=== PATIENT | female | born 1945 | race Caucasian/White ===

== ENCOUNTER → 2021-12-17 11:19 | Outpatient (CLI) | payer MEDICARE, SELFPAY ==
[2021-12-17 11:57] LABS: COVID19 -Nasal RAPID Negative (Negative)
== END ==
PROVIDERS: Referring Provider Podiatrist; Visit Provider Podiatrist
DX: Z20.822 Contact with and (suspected) exposure to COVID-19 (principal)
CPT/HCPCS: 87635; C9803

== ENCOUNTER 2021-12-18 08:08 | Day surgery (SDC) | payer MEDICARE, SELFPAY ==
[2021-12-17 15:21] VITALS: BMI 27.2
[2021-12-18] VITALS (8 sets, daily range): BP systolic 160–196; BP diastolic 79–106; PULSE 58–78; RESP 12–28; TEMP 36.1–36.4; O2SAT 97–100; BMI 27.2
--- NOTE | 2021-12-18 | PATH_ITS ---
[facility] Accession Number: [id number] No. of containers..01 Tissue . 01 Material submitted: . foot - RIGHT FOOT . 01 Clinical history: . GANGLION CYST . 01 Diagnosis: Right Foot, Excision: Consistent with ganglion cyst. [facility] 12/24/2021 0855 Local . 01 Electronically signed: . Jose Rafael Juan MD, Dermatopathologist NPI- [id number] . 01 Gross description: . RIGHT FOOT: Received in formalin is 1 fragment(s) of elliott, soft tissue measuring 1.7 x 1.2 x 0.8 cm which are inked serially sectioned and submitted entirely in 1 cassette(s) /[facility] 12/22/2021 2257 Local . 01 Pathologist provided ICD-10: M67.471 . 01 CPT . 188375 Specimen Comment: A courtesy copy of this report has been sent to [phone] Performed at: 01 [facility] [address] [place] [address], [place], [place] [id number] MD Hever Ayers MD Phone: [phone]
--- NOTE | 2021-12-18 07:40 | PM.HP.1 ---
History of Present Illness History of Present Illness Chief complaint: [facility] [place] Patient History Medical History (Updated 12/17/21 @ 15:27 by Lorraine Oconnell RN) Arthritis Asthma DJD (degenerative joint disease) Fibromyalgia Gout Headache, migraine HLD (hyperlipidemia) HTN (hypertension) IBS (irritable bowel syndrome) Osteoporosis Scoliosis Skin cancer Spinal stenosis Thyroid disease Surgical History (Updated 12/17/21 @ 15:28 by Lorraine Oconnell RN) History of hysterectomy Hx of appendectomy Hx of section Family & Social History Tobacco & Substance use: Smoking Status Former smoker Meds Home Medications and Allergies Home Medications Medication Instructions Recorded Confirmed Type celecoxib 100 mg capsule (Celebrex) 100 mg PO BID 12/17/21 12/17/21 History ezetimibe 10 mg tablet (Zetia) 10 mg PO DAILY 12/17/21 12/17/21 History hydrocodone 10 mg-acetaminophen 1 tab PO Q4-6H PRN Pain 12/17/21 12/17/21 History 325 mg tablet levothyroxine 12/17/21 History losartan 12/17/21 History pregabalin 100 mg capsule 100 mg PO TID 12/17/21 12/17/21 History Allergies Allergy/AdvReac Type Severity Reaction Status Date / Time codeine Allergy Verified 12/17/21 15:25 ibuprofen Allergy Verified 12/17/21 15:25 Assessment & Plan Time Spent With Patient Critical Care time: I spent a total of [] minutes of critical care time on this patient's care today; this time is exclusive of procedural time.
[2021-12-18] MEDS: LACTATED RINGERS 1,000 ML 84 ML IV (08:56)
--- NOTE | 2021-12-18 09:35 | SUR.PHASEII ---
Spoke iwth Dr Simpson. Ibuprofen for pain now, see new order. No flomax needed. Ibuprofen and Acetaminophen at home for pain.
--- NOTE | 2021-12-18 09:53 | PM.PREOP ---
Pre-operative Note COVID-19 COVID-19 status: Negative Result date/Date tested (Pos, Neg/Pending): 12/17/21 Interval Note History & Physical reviewed/Exam performed by Physician: Yes Changes to H&P: No
--- NOTE | 2021-12-18 09:54 | P.OP_ITS ---
Operative Date/Time/Diagnoses Date of procedure: 12/18/21 Time of procedure: 09:54 Pre-op diagnosis: Right foot soft tissue mass, suspect ganglion cyst Post-op diagnosis: same Procedure & Clinicians Procedure: Right foot ganglion cyst excision Same procedure as scheduled: Yes Indications: 76-year-old female with ongoing concern of painful mass to the top of the right foot. There is a suspicion of ganglion cyst. Conservative measures have failed to alleviate this pain and she wished to have surgical intervention at this time. We spoke the risks, potential complications, expected outcomes. Consent was signed, no contraindication to the procedure at this time. Surgeon: Kerline Peraza Click Yes if Unassisted: Yes Anesthesia Type: General Operative Notes Closure Type: primary Specimen(s): other (Soft tissue suspected to be ganglion cyst sent for verification to pathology from right fourth/fifth tarsometatarsal joint region.) Estimated Blood Loss (mL): 20 Blood products transfused: none Tourniquet time (min): 26 Procedure in detail: The patient was brought to the operating room and placed on the operating table in the supine position. Tourniquet was placed about the right thigh. Well padded, appropriately aligned. After induction of general anesthesia the foot and ankle were prepped and draped in the usual aseptic manner. The tourniquet was inflated. After check of anesthesia, an incision was made over the dorsal lateral midfoot over the soft tissue mass enlargement. The incision was deepened through subcutaneous tissues, being careful to identify and retract all vital neural and vascular structures. All bleeders were cauterized and ligated as ne cessary. The enlargement of the underlying mass was immediately shown, filled with viscous fluid and the marcano somewhat translucent consistent with suspected ganglion cyst. It was overlying what appeared to be a peroneus tertius which had a small tear. One wall of the cyst was the tendon sheath of the tertius. The cyst measured about 2.75 x 1.5 cm. After it was cleanly resected at its base from the tendon sheath, it also had an extension component into the juncture of the cuboid/fourth-fifth metatarsal bases. This was also removed from that area and use of a currette to insure best potential for non recurrence from the joint. The area was irrigated with copious amounts of normal sterile saline. The specimen was passed from the table and sent to pathology for identification. Cautery was used where it was coming from at the joint mentioned above to attempt less potential for recurrence. No further gelatinous fluid was seen. The tertius tendon was resected on one edge that had the most injury from the cyst, and the majority of the tendon in good strength and health was covered with the overlying remaining retinacular tissue and remaining tendon sheath. Two areas of the tendon edge were repaired used 4-0 vicryl. The tourniquet was deflated, a prompt hyperemic response was seen to the foot. Subcutaneous closure performed using 4-0 vicryl and skin closure performed using 3-0 nylon. The area was dressed with a lightly compressive sterile dressing including Adaptic, 4x4s, kerlix, and LAURO wrap. She was placed in stockinette and post op shoe and transferred to the PACU with vital signs stable and vascular status intact. Complications: none Post-operative Condition: stable Disposition: PACU Plan for aftercare: Following a period of postoperative monitoring, the patient will be discharged to home on written and oral postoperative instructions including keeping the dressing dry and intact, avoiding significant ambulation on the foot, icing and elevating the foot when seated home. DVT prevention techniques have been reviewed. For the 1st postoperative visit the dressing will be changed and close to the 3rd postoperative week we will likely remove the sutures.
[2021-12-18] MEDS: CEFAZOLIN 2 GM/100 ML PREMIX 100 ML IV (09:58)
--- NOTE | 2021-12-18 10:21 | SUR.OPER ---
Supine on padded OR bed, head on pillow, arms secured on padded arm boards at <90 degrees abduction, legs uncrossed, safety belt at abdomen, tape over blanket over lower left leg. [place] bump under right hip
[2021-12-18] MEDS: BUPIVACAINE 0.5% (PF) VIAL 30 ML INJ (10:27)
== END 2021-12-18 12:30 | disposition home or self-care (01) ==
PROVIDERS: PCP Family Medicine; Referring Provider Podiatrist; Visit Provider Podiatrist
PROC: (CPT 28090; principal; 2021-12-18 09:15)
DX: M67.471 Ganglion, right ankle and foot (principal); I10 Essential (primary) hypertension; E03.9 Hypothyroidism, unspecified; M79.7 Fibromyalgia
CPT/HCPCS: 28090; J0690; J3010

== ENCOUNTER 2022-12-02 11:18 | Day surgery (SDC) | payer MEDICARE, SELFPAY ==
[2022-11-24 10:05] VITALS: BMI 25.7
[2022-12-02] VITALS (11 sets, daily range): BP systolic 117–176; BP diastolic 48–80; PULSE 54–963; RESP 6–29; TEMP 36.2–37; O2SAT 94–100; BMI 24.8; BMI 25.7
--- NOTE | 2022-12-02 | DI.RAD.S_ITS ---
PROCEDURE: XR HIP W PEL IF DONE RT 2V INDICATIONS: POST OP TECHNIQUE: AP pelvis and lateral view of the right hip acquired. COMPARISON: [facility], [place], XR HIP W PEL IF DONE RT 2V, 12/02/2022, 17:12. FINDINGS: Bones: Patient is status post right hip arthroplasty, with hardware components in expected positions. The hip joint appears congruent. The visualized bony structures appear intact. Soft tissues: Overlying postoperative changes are noted. No suspicious soft tissue densities. IMPRESSION: Expected postoperative appearance of the right total hip arthroplasty. Dictated by: Stephan Henry M.D. on 12/02/2022 at 19:08 Approved by: Stephan Henry M.D. on 12/02/2022 at 19:08
--- NOTE | 2022-12-02 06:00 | DI.RAD.S_ITS ---
PROCEDURE: XR HIP W PEL IF DONE RT 2V INDICATIONS: SHANNAN TECHNIQUE: Fluoroscopic guidance utilized for a right total hip arthroplasty. COMPARISON: None. FINDINGS: Fluoroscopic guidance for a right total hip arthroplasty, which appears well aligned. IMPRESSION: Fluoroscopic guidance. Dictated by: Stephan Henry M.D. on 12/02/2022 at 18:48 Approved by: Stephan Henry M.D. on 12/02/2022 at 18:48
[2022-12-02] MEDS: ACETAMINOPHEN 325 MG TABLET 975 MG PO (13:27)
[2022-12-02] MEDS: LACTATED RINGERS 1,000 ML 42 ML IV ×3 (13:28→18:12)
--- NOTE | 2022-12-02 16:09 | PM.PREOP ---
Pre-operative Note Interval Note History & Physical reviewed/Exam performed by Physician: Yes Changes to H&P: No
[2022-12-02] MEDS: CEFAZOLIN 2 GM/100 ML PREMIX 100 ML IV ×2 (16:22→22:57)
[2022-12-02] MEDS: TRANEXAMIC ACID 1,000 MG VIAL 1000 MG INJ (16:22)
--- NOTE | 2022-12-02 16:53 | SUR.OPER ---
Supine on padded [place] table with bilateral legs secured in padded positioning boots and suspended in positioning spars, operative leg in traction per surgeon. Head on one pillow. Arms on both sides secured on padded armboards. Padded perineal post in place per surgeon.
[2022-12-02] MEDS: ROPIVACAINE/EPI/CLONIDINE/KET 50 ML SYRINGE INJ (16:57)
[2022-12-02] MEDS: HYDROMORPHONE 1 MG INJ IV ×3 (18:45→19:10)
[2022-12-02] MEDS: hydrOXYzine 50 MG/ML INJ 25 MG IM (18:46)
[2022-12-02] MEDS: ACETAMINOPHEN IV 1,000 MG/100 ML VIAL 400 MG IV (18:58)
--- NOTE | 2022-12-02 19:03 | PM.OP.1 ---
Operative Date/Time/Diagnoses Date of procedure: 12/02/22 Time of procedure: 16:45 Pre-op diagnosis: Right hip arthritis Post-op diagnosis: same Procedure & Clinicians Procedure: Right total hip arthroplasty Same procedure as scheduled: Yes Surgeon: Sonny Dallas [employer] Assistant Teacher: Suleman Clemente Anesthesia Type: General and Local Operative Notes Specimen(s): none sent Prosthetic devices, grafts, tissues, transplants, or devices: Depuy [place] 52 mm acetabular cup with 2 screws with a 5 standard offset Actis femoral stem and 36 mm +1.5 femoral head Procedure in detail: This 77-year-old female patient had severe activity limitations secondary to right hip arthritis. She was seen in the clinic and operative versus nonoperative treatment was discussed with her at length. She wished to proceed with right total hip arthroplasty. Risks and benefits of the procedure were discussed in detail. Given her age of 77 years and her female gender, I considered cementing her stem. She had had a recent DEXA scan which demonstrated a T-score of 0.1 in the right hip. I therefore felt her bone density was sufficient to utilize uncemented fixation for her femoral stem. Informed consent was obtained. She had been taking oral opioids prior to surgery and was counseled to abstain from those as much as possible in order to optimize her postoperative pain control. She was met in the preoperative holding area the day of surgery and the procedure was again discussed at length. All questions were answered. She was brought back to the operating room where general anesthesia was induced as she stated she had spinal degeneration which would preclude placement of spinal anesthesia. She was anesthetized and transferred to the [place] table. All bony prominences were padded. She was prepped and draped in the usual sterile fashion. Operative staff included Suleman Clemente, physician operations administrative assistant. His assistance was required for patient positioning, soft tissue retraction, wound closure. Without his assistance the procedure would not have been possible. A time-out procedure was performed verifying the correct patient operative site procedure allergies and comorbidities. All were in agreement. TXA and cefazolin were both administered prior to incision. A direct anterior approach the hip was utilized. The rectus and TFL were dissected and the lateral circumflex vessels between them were coagulated. An anterior wall retractor was placed and the reflected head of rectus was released under tension. Cobra retractors were placed over the superior and inferior femoral neck. A capsulotomy was made in line with the femoral neck. This was retracted using tag stitches. An [place] soft tissue retractor was placed between the TFL and the rectus and the Cobra retractors were replaced intracapsularly. The medial leaflet was dissected down to the lesser trochanter and a resection was marked using a ruler cut to the templated neck cut. The a napkin ring was cut as well. This was removed and the femoral head was removed. Retractors were placed on the anterior and posterior wall of the acetabulum and the labrum was sharply excised. The pulvinar was coagulated and excised. A single 51 mm Reamer was utilized. Fluoroscopic verification was used to ensure appropriate reaming depth. This involved positioning the C-arm to obtain an AP pelvis which matched her preoperative standing AP pelvis. Once satisfied with the ream, a 52 mm pinnacle cup was placed. Positioning was verified fluoroscopically. The ellipse did appear to be a significant amount of anteversion, perhaps 30?, however this was barely tucked underneath the anterior wall and did not appear to be excessive based on palpable landmarks. Two screws were placed and appropriate positioning was verified fluoroscopically. A 36 mm liner was placed and tested to ensure appropriate stability by attempting to wedge it out with a tonsil. When this could not be done I was satisfied that the liner was in an appropriate locked position. All retractors were removed and the lateral capsule was released off of the femur. This involved placing a Hohmann retractor outside the capsule and dissecting the capsule away from the conjoined tendon. This lateral leaflet was then tucked medially and the femur was extended and adducted without any traction on. Medial and greater trochanter retractors were placed and the femur was elevated. It was then elevated. Once appropriate broaching position had been obtained I used a starter broach to obtain access to the femoral diaphysis. I used a curved rasp to open up the canal. I then broached up to a size 5. A standard offset neck and a +1.5 mm head were placed. Retractors were removed and the hip was manually reduced. An AP pelvis was again obtained and a line across the ischium was used to measure leg length. I felt that the hip was slightly long based on that fluoroscopic image. I was satisfied with the offset. The hip was then dislocated and the neck and head were removed. The hip was returned to the broaching position and retractors were replaced. The size 5 broach had a good fit on the AP hip x-ray but given the slight excess length, I broached the size 5 broach further down the femur and calcar planed again. I then placed a size 5 standard offset stem. The stem did not sit as far down as the broach had. I placed a trial +1.5 mm head. All retractors were removed and the hip reduced. The hip was noted to be stable with maximum external rotation as well as a 45 degree drop test. An AP pelvis was again obtained and demonstrated that the operative hip was very slightly longer than the nonoperative hip. Offset was appropriate. I brought the hip back down into the broaching position and replaced retractors and once more attempted to impact the stem down to the level at which I had broached. The stem did not advance with light taps and I felt that the risk of fracture outweighed the slight lengthening of the hip and at that time placed a +1.5 mm ceramic head. This was impacted onto a clean dry trunnion. The retractors were removed the hip was reduced and stability testing was again performed, demonstrating stability with maximum external rotation as well as a 45 degree drop test. Final fluoroscopic images were obtained. The wound was soaked with Betadine and then irrigated. Additional tranexamic acid was administered. The soft tissues were infiltrated with a mixture ropivacaine epinephrine clonidine and Toradol. The wound was closed with Vicryl and the capsule, Stratafix, and Monocryl. Dermabond was applied and an Aquacel dressing was applied. The patient was awoken from anesthesia and taken to the PACU where she was noted to have intact dorsiflexion and plantar flexion of her hallux and ankle, a palpable PT pulse in her operative foot, and grossly appropriate leg lengths. Post-operative Plan for aftercare: Weightbearing as tolerated Aspirin DVT prophylaxis twice per day 81 mg Plan for discharge home Discharge once physical therapy has cleared her. This will necessitate an overnight stay given the time of her transfer to the floor Follow-up outpatient in our clinic for a wound check Continue previous outpatient regimen of 10 mg hydrocodone through the 1st week postoperatively. Any additional opioids beyond that time would need to be prescribed by her pain management doctor
[2022-12-02] MEDS: ONDANSETRON 4 MG/2 ML INJ IV (19:05)
[2022-12-02] MEDS: LORazepam 2 MG/ML INJ 0.5 MG IV ×2 (19:05→19:24)
[2022-12-02] MEDS: OXYCODONE IR 5 MG TABLET PO (19:11)
[2022-12-02] MEDS: DOCUSATE 100 MG CAPSULE PO (22:17)
[2022-12-02] MEDS: ASPIRIN EC 81 MG TABLET PO (22:17)
[2022-12-02] MEDS: LACTATED RINGERS 1,000 ML 100 ML IV (22:17)
[2022-12-02] MEDS: PREGABALIN 50 MG CAPSULE 100 MG PO (22:17)
[2022-12-02] MEDS: ACETAMINOPHEN 325 MG TABLET 650 MG PO (22:18)
[2022-12-02] MEDS: methocarbamoL 500 MG TABLET 750 MG PO (22:19)
--- NOTE | 2022-12-03 00:07 | PC.ADMIT ---
[address] Admission Note: Patient arrived to ACU from PACU at 19:55. Alert and confused, somewhat drowsy. Significant other present at bedside. LR running at 100/hr. Patient oriented to room and call light. Bed in low and locked position, bed alarm on and call light within reach. The patient,Arnoldo Orona,77 y/o, was given written information regarding hospital policies, unit procedures and contact persons. Patient's smoking status: Former smoker. Vital Signs - 8 hr 12/02/22 18:32 12/02/22 18:36 12/02/22 18:52 Temperature 97.2 F L Pulse Rate 59 L 85 100 H Respiratory Rate 6 L 14 29 H Blood Pressure 137/48 L 145/63 H 158/75 H Pulse Oximetry 95 95 99 Oxygen Delivery Method Room Air Room Air Room Air Oxygen Flow Rate 12/02/22 18:57 12/02/22 19:02 12/02/22 19:18 Temperature Pulse Rate 963 H 80 54 L Respiratory Rate 21 23 20 Blood Pressure 176/80 H 117/78 160/71 H Pulse Oximetry 97 98 96 Oxygen Delivery Method Room Air Room Air Room Air Oxygen Flow Rate 12/02/22 19:23 12/02/22 19:55 12/02/22 20:25 Temperature 98.6 F 98.3 F Pulse Rate 56 L 54 L 58 L Respiratory Rate 15 18 18 Blood Pressure 135/67 146/62 H 142/78 H Pulse Oximetry 96 94 97 Oxygen Delivery Method Room Air Oxygen Flow Rate 2 2 12/02/22 21:55 Temperature 98.6 F Pulse Rate 55 L Respiratory Rate 18 Blood Pressure 154/62 H Pulse Oximetry 100 Oxygen Delivery Method Oxygen Flow Rate 2
[2022-12-03] MEDS: OXYCODONE IR 10 MG TABLET PO ×5 (01:33→15:34)
[2022-12-03 01:46] VITALS: BP 169/71; PULSE 83; RESP 18; TEMP 36.6; O2SAT 99
[2022-12-03] MEDS: LACTATED RINGERS 1,000 ML 100 ML IV (03:18)
[2022-12-03] MEDS: CEFAZOLIN 2 GM/100 ML PREMIX 100 ML IV (05:20)
[2022-12-03] MEDS: ACETAMINOPHEN 325 MG TABLET 650 MG PO ×2 (06:57→12:39)
--- NOTE | 2022-12-03 07:32 | PM.PNPO.1 ---
Subjective Subjective Date Patient Seen: 12/03/22 Time Patient Seen: 07:32 Interval history: Pain is moderate. Denies fever or chills. No nausea or vomiting. Patient does have a caregiver at home. Exam Vital Signs (past 8 hours): - 12/03/22 01:46 Temperature 97.9 F Pulse Rate 83 Respiratory Rate 18 Blood Pressure 169/71 H Pulse Oximetry 99 Oxygen Flow Rate 2 Oxygen Delivery Method Room Air Oxygen Flow Rate 2 Narrative Exam Narrative: 77-year-old female resting comfortably in bed in no apparent distress. Dressing is clean, dry and intact. Motor functions intact bilateral lower extremities. Sensation grossly intact to light touch bilateral lower extremities. Const General: cooperative and comfortable Nutritional Appearance: average body habitus Resp Effort & Inspection: normal respiratory effort and able to speak in complete sentences Objective Labs 12/03/22 06:53 PFSH Medical History History of COVID-19 (2019) Thyroid disease Spinal stenosis Osteoporosis Scoliosis IBS (irritable bowel syndrome) Headache, migraine Fibromyalgia Gout DJD (degenerative joint disease) HTN (hypertension) HLD (hyperlipidemia) Skin cancer Asthma Arthritis Surgical History Hx of foot surgery (12/18/21) Hx of section History of hysterectomy Hx of appendectomy Social History household members: significant other Smoking Status: Former smoker alcohol intake: never Assessment & Plan Post-op Postoperative Procedures: Procedures Operation Date: 12/02/22 12:45 Actual Procedure Side Surgeon p Total Hip Arthroplasty/Anterior Approach Right Sonny Dallas MD Postoperative day: 1 Postoperative status: doing well Postoperative status narrative: Status post right total hip arthroplasty, anterior approach Postoperative plan: routine post-op care Postoperative plan narrative: Mobilize with physical therapy, anterior hip precautions Multimodal pain management Aspirin for DVT prophylaxis Discharge likely later today or tomorrow
[2022-12-03 07:47] LABS: Hematocrit 25.5 % (36-46); Hemoglobin 8.8 g/dL (12.0-16.0)
[2022-12-03] MEDS: DOCUSATE 100 MG CAPSULE PO (08:17)
[2022-12-03] MEDS: methocarbamoL 500 MG TABLET 750 MG PO (08:17)
[2022-12-03 08:18] VITALS: BP 150/57; PULSE 71; RESP 18; TEMP 36.3; O2SAT 94
[2022-12-03] MEDS: LOSARTAN 50 MG TABLET 100 MG PO (08:18)
[2022-12-03] MEDS: PREGABALIN 50 MG CAPSULE 100 MG PO (08:18)
[2022-12-03] MEDS: ASPIRIN EC 81 MG TABLET PO (08:18)
[2022-12-03] MEDS: LEVOTHYROXINE 50 MCG TABLET PO (08:18)
[2022-12-03] MEDS: EZETIMIBE 10 MG TABLET PO (08:18)
--- NOTE | 2022-12-03 09:30 | PT.IIE ---
Current Diagnoses Unilateral primary osteoarthritis, right hip (12/02/22) Surgery Performed Operation Date: 12/02/22 12:45 Actual Procedures p Total Hip Arthroplasty/Anterior Approach(Right) - Sonny Dallas MD Surgical History (Last Reviewed 12/03/22 @ 07:33 by Suleman Clemente PA-C) History of hysterectomy Hx of appendectomy Hx of section Hx of foot surgery (12/18/21) Medical History (Last Reviewed 12/03/22 @ 07:33 by Suleman Clemente PA-C) Arthritis Asthma DJD (degenerative joint disease) Fibromyalgia Gout Headache, migraine History of COVID-19 (2019) HLD (hyperlipidemia) HTN (hypertension) IBS (irritable bowel syndrome) Osteoporosis Scoliosis Skin cancer Spinal stenosis Thyroid disease Physical Therapy Inpatient Evaluation/Re-Eval M1 PT/OT-IP Prior Functional Status Start: 12/03/22 12:15 Freq: NEEDED Status: Active Protocol: Document 12/03/22 09:30 AB (Rec: 12/03/22 12:28 AB [email or web address]) Medical Review Prior Functional Status Medical History Reviewed Yes Communication able to make needs known Mobility and Gait pt stated that she is modified independent with all mobilities and ambulation without AD but occasionally using either a FWW or a SPC in the last month due to hip pain Social History Household Members other Living Arrangements House Number of Floors (Floors) Two Floors Number of Stairs To Enter/Railing? pt will stay on the main level of the house 3 steps without rails to enter Home Environment High Toilet,Walk in Shower Home Equipment Front Wheel Walker,Straight Cane,Shower Seat without Backrest,Hand Held Shower,Grab Bars In Shower Additional Social History Comment pt stated that her account support specialist Danielle will be assisting her at home M2 PT-IP Current Condition Start: 12/03/22 12:15 Freq: NEEDED Status: Active Protocol: Document 12/03/22 09:30 AB (Rec: 12/03/22 12:28 AB [email or web address]) Physical Therapy Current Condition Current Condition Evaluation Date 12/03/22 Treatment Diagnosis s/p R SHANNAN anterior approach; difficutly in walking Onset Date 12/02/22 M3 PT-IP Subjective Start: 12/03/22 12:15 Freq: NEEDED Status: Active Protocol: Document 12/03/22 09:30 AB (Rec: 10/13/23 12:28 [id number]) Subjective Physical Therapy Visit Type Type Initial Evaluation Visit Start Time 09:30 Visit Stop Time 10:50 Total Visit Minutes 58 Notes seen for split visits: 930 to 948 am and 1010 to 1050am Number of ASSOCIATE MANAGER Visits 0 Physical Therapy Visit Comments Patient Comments pt agreeable to do PT Therapy Pain Assessment Pain When Pain Assessed At Rest Pain Present Pain Present Pain Reported Location hip Intensity 6 Scale Used increases with mobility Pain Behaviors Facial Grimacing,Guarding, Holding Area,Wincing Pain Management Techniques Apply Cold,Distraction, Modification of Treatment,Re- positioning,Timing of Activity with Medications M4 PT-IP Mobility and Gait Start: 12/03/22 12:15 Freq: NEEDED Status: Active Protocol: Document 12/03/22 09:30 (Rec: 12/03/22 12:28 [email or web address]) PT-Bed Mobility Assessment Supine to Sit Supine to Sit Maximum Assistance PT-Transfer Assessment Sit to and From Stand Sit to and from Stand Maximum Assistance,1 Person Assistance,Use of Upper Extremities Equipment Transfer Assistive Device Gait Belt,Front Wheeled Walker Orthotic/Prosthetic Devices or Brace: No Transfers Transfer Destination Chair Transfer Technique ambulated Transfer Ability Level of Assist Maximum Assistance,1 Person Assistance,Use of Upper Extremities Comments Mobility Comments educated pt regarding anterior hip precautions. pt only able to recall 1/2. BP in supine 123/51. completed supine to sit max A and max cues. able to sit on EOB CGA. completed sit to stand max A and max cues. c/o increase R hip pain. ambulated in room using FWW max A ~ 20 ft. max cues for steadiness and precautions. pt presents with heavy UE use on FWW for support during ambulation. pt sat on the chair. positioned pt on the chair. call light and table placed within reach. set up caregiver traininpm this afternoon. informed pt regarding mobility assistance needs and not safe to go and will re-assess this afternoon and also will conduct caregiver training. informed nurse. Gait Assessment Gait Gait Assistance Required: Maximum Assistance Distance (Feet) 20 Able to Maintain Weight Bearing Status Yes During Gait Assistive Devices Assistive Device Gait Belt,Front Wheeled Walker Orthotic/Prosthetic Devices or Brace: No Gait Deviations General Gait Pattern Antalgic,Decreased Stride Length,Decreased Feet Clearance Factors Limiting Gait Function Factors Limiting Gait Function Decreased Activity Tolerance, Decreased Sensation,Decreased Strength,Difficulty Following Directions,Limited Range of Motion,Pain,Poor Balance,Poor Safety Awareness PT-Balance Assessment Sitting Balance and Reactions Static Sitting Balance Ability Good Dynamic Sitting Balance Ability Good Standing Balance and Reactions Static Standing Balance Ability Poor Dynamic Standing Balance Ability Poor Device Used FWW M5 PT-IP Objective Assessments Start: 12/03/22 12:15 Freq: NEEDED Status: Active Protocol: Document 12/03/22 09:30 AB (Rec: 12/03/22 12:28 AB [email or web address]) Orientation Orientation/Cognition Level of Alertness Alert Orientation Name,Place Language Function Ability No Deficits Noted Safety Awareness Decreased Safety Awareness Memory Description Short Term Impaired Gross Range of Motion Lower Extremity ROM Assessment Within Functional Limits Strength Lower Extremity Strength Assessment Right Impaired Hip 3-/5 Knee 3+/5 Coordination Assessment Gross Coordination Gross Coordination WNL Sensation Assessment Sensation Sensation Description Numbness Comments Sensation Comments c/o slight lateral R thigh numbness Muscle Tone Muscle Tone WNL Yes M6 PT-IP Treatment Start: 12/03/22 12:15 Freq: NEEDED Status: Active Protocol: Document 12/03/22 09:30 AB (Rec: 12/03/22 12:28 AB [email or web address]) Physical Therapy Treatment Education Education Provided Precautions,Weight Bearing Status,Post-Op Packet,Safety M7 PT-IP Assessment and Plan Start: 12/03/22 12:15 Freq: NEEDED Status: Active Protocol: Document 12/03/22 09:30 AB (Rec: 12/03/22 12:28 [email or web address]) PT Summary Assessment and Plan Potential Rehabilitation Potential Fair Status of Condition at Evaluation Evolving Summary Impairments Pain,ROM,Strength,Balance, Coordination,Sensation,Tone, Cognition,Bed Mobility, Transfers,Gait,Activity Tolerance Assessment Summary pt is a 77 y/o female s/p R SHANNAN anterior approach POD1. pt requiring max A with mobility and max cues for safety and precautions. caregiver training set up this afternoon and will re-assess d/c plans. pt has 3 steps without rails to enter the house and as of this morning, needing max A with ambulation with heavy UE use on FWW for support and is not appropriate to do stair climbing. will attempt this afternoon if appropriate. will continuet o assess progress. d/c plan: SNF vs 13/09 assist and HHPT. Goals Bed Mobility Goal Minimal Assistance Transfer Goal Minimal Assistance,Front Wheeled Walker Gait Goal Minimal Assistance,Front Wheel Walker Gait Distance 100 Other Goals improve bed mobiltiy, transfers and ambulation using FWW ~ 200 ft SBA up/down 3 steps using SPC/SET UP WORKER CGA Days to Meet Goals 10 Frequency of Treatment Frequency Of Treatment Twice a Day Treatment Plan Physical Therapy Treatment Plan Bed Mobility Training,Transfer Training,Gait Training, Therapeutic Exercise,Balance Retraining,Post Op Education, Discharge Planning,Hot or Cold Pack,Neuromuscular Re-ed, Coordination Retraining,Manual Therapy Precautions Anterior Hip Precautions No Hip Extension,No Hip External Rotation Weight Bearing Status Weight Bearing Status Weight Bear as Tolerated Allowed Weight Bearing Amount (enter % RLE WBAT or #) (%) Recommendations To Nursing Amount of Assist Needed 1 Person Assist Discharge Recommendations PT Discharge Recommendations Home with 13/09 Assist Available,Home Health,SNF Rehab,Home vs SNF Transportation Needs at Discharge Private Vehicle,Wheelchair/ Cabulance
--- NOTE | 2022-12-03 11:21 | CM.DANOTE ---
DCP: Case received, EMR reviewed and met with patient. Introduced self and role. Was able to obtain information regarding patient's baseline activity status prior to her surgery. DCP assessment completed with information currently available. Patient is a 77 year old female who admitted yesterday morning to the care of the orthopedic team. PCP: Dr. Cloud. Payer: confirmed: [employer] Medicare. Patient came to the hospital via private vehicle for a surgical procedure. Patient had right total hip arthroplasty. Patient has history of right total hip arthroplasty. Met with patient in her room. She was sitting up in bed, alert. Confirmed that she resides in [facility], has a distribution sales representative (used to be her partner), named Danielle Mirza who is staying her. At her baseline, she is independent, but does use a cane, has a walker if needed as well. Asked her if she had a caregiver, which was indicated in the note, indicated that she had friends, and he distribution sales representative, no regular caregiver, but confirmed she will have support at home by distribution sales representative and friends, and her sister may be coming to stay with her. P: DCP to continue to follow. Patient will be working with P.T. Patient has outpatient P.T. set up in [facility], her friends can take her. She should be able to go home when stable and cleared by P.T. Germania Campbell RN/Chief Deputy Discharge Planning/Care Management CM Discharge Assessment Start: 12/03/22 11:19 Freq: Status: Active Protocol: Document 12/03/22 11:19 (Rec: 12/03/22 11:21 [id number]) Discharge Planning Assessment Assigned Performance Engineer Germania Campbell RN/Chief Deputy Advance Directives? Yes Advance Directives on File No History Provided By Patient,Family Member,Medical Record Prior Living Arrangements House Household Members significant other Type of transporation used prior to Drives own vehicle admit Independent with ADL's Yes Is patient alert and oriented? Yes Caregiver for Another No DME Already Rented / Owned FWW / Walker,Cane Discharge Plan Home Transportation Arrangement Box Toe Cementer or friends. Referrals Initiated None needed Additional Comment Will see how patient does with P.T. Whiteboard Updated in Patient Room with Yes name and ext. # of Performance Engineer Review Status In Process Next Review Type Continued Stay Review Pre-Anesthesia Assessment Start: 11/24/22 10:03 Freq: Status: Active Protocol: Document 11/24/22 10:05 [facility] (Rec: 11/24/22 10:33 [facility] [id number]) Pre-Anesthesia Assessment Patient Information Reviewed Via Phone Assessment Assessment Completed With Patient Diagnostic Results BMP/CMP,CBC,EKG Comment Outside labs/EKG scanned Primary Care Provider Angie Cloud Seen Specialist in Last 12 Months Yes Specialist Seen Orthopedist,Landscaping Specialist Primary Language Indonesian Dynamics Ax Developer Required No Height 5 ft 2 in Weight 141 lb Body Mass Index (BMI) 25.7 Hearing Ability Normal Visual Assist Glasses Dentition Type Teeth, Natural Present Barriers to Learning None Hx Anesthesia Reactions No Hx Family Anesthesia Reaction No Hx Malignant Hyperthermia No Hx Blood Transfusions No Hx Blood Transfusion Reaction No Anesthesia Review Requested No Sand Cleaning Machine Operator No alcohol intake never Smoking Status Former smoker how long ago did patient quit smoking 1999 Substance Use Type marijuana Comment Edibles only Pain Present Pain Reported Musculoskeletal Symptoms Abnormal Gait,Back Pain, Difficulty Walking,Joint Pain, Neck Pain History of Falling (Recent or History of No ) Patient is completely paralyzed or No completely immobile Prosthesis or Orthotic Device Cane Mental Status Oriented to own ability Is patient on oxygen? No Does patient have VILLALBA/SOB No Hx Sleep Apnea No CPAP/BIPAP use not prescribed Currently Taking a Beta Geremias No Hx Chest Pain No Hx SOB No Hx Syncope or Dizziness No Anti-Coagulant Therapy No Has a Kitchen Stewardess No Cardiac Testing No Hx Pacemaker/ICD No Pacemaker Rep Required? No Cardiac Clearance Received Not Applicable Diet Type At Home Regular,Vegetarian Dysphagia No: No Beef or pork Gastrointestinal Symptoms Constipation,Diarrhea Chronic UTI Yes: Currently Bladder Pattern Frequency,Retention Urinary Catheter Present No Hx Urinary Self Catheterization No Comment Going in for additonal UA 11/24 Diabetes No HgbA1C 5.2 Date 11/12/22 Patient No Lactating No Hx Drug Resistant Organism No Presence of External or Internal Medical No Devices Have you had any close contact with No someone diagnosed with COVID-19? Received a COVID vaccine? Yes Received all doses? Yes Marital Status / Lives With significant other Current Living Arrangements House Number of Floors (Floors) Two Floors Support System Significant Other Does the Patient Have Assistance After Yes Surgery Patient Discharge Plan Description Return Home Comment Pt advised overnight length of stay per surgeon Feels Safe in Current Environment Yes Been Physically Hurt or Threatened By a No Person in Current Environment Do you have thoughts of harming yourself None or others? Are you currently considering suicide? No Do you have a plan to hurt yourself or No Plan others? Do You Have Any Spiritual Beliefs That No May Affect Your HC Choices? Do You Have Any Cultural Practices That No May Affect Your HC Choices? Who Can We Speak to About Patient's Care Family, friends Identifying Code for Release of Patient Declines to issue Information Health Care Proxy/Next of Kin Cynthia Avelar (sister) Health Care Proxy Emergency Contact Name Danielle (Life partner) Emergency Contact Advance Directives? Yes Advance Directives on File No Requested Patient Bring Advanced Yes Directives DOS Power of Sales Planner Yes Power of Sales Planner Name Cynthia Avelar (sister) Power of Sales Planner PAC Instructions Do not shave/clip surgical site,Durable medical equipment ,Medications to take/avoid, Nasal antibiotic,No ETOH/ petroleum product on skin DOS, NPO,Sensory aids,Sturdy shoes/ comfortable clothes,Do not bring valuables and remove jewelry
[2022-12-03 12:23] VITALS: BP 133/49; PULSE 60; RESP 19; TEMP 37.6; O2SAT 97
--- NOTE | 2022-12-03 13:20 | PT.IPTN ---
Current Diagnoses Unilateral primary osteoarthritis, right hip (12/02/22) Surgery Performed Operation Date: 12/02/22 12:45 Actual Procedures p Total Hip Arthroplasty/Anterior Approach(Right) - Sonny Dallas MD Physical Therapy Treatment Note M2 PT-IP Current Condition Start: 12/03/22 12:15 Freq: NEEDED Status: Active Protocol: Document 12/03/22 09:30 AB (Rec: 12/03/22 12:28 AB [id number]) Physical Therapy Current Condition Current Condition Evaluation Date 12/03/22 Treatment Diagnosis s/p R SHANNAN anterior approach; difficutly in walking Onset Date 12/02/22 M3 PT-IP Subjective Start: 12/03/22 12:15 Freq: NEEDED Status: Active Protocol: Document 12/03/22 14:14 TS (Rec: 12/03/22 14:34 TS [id number]) Subjective Physical Therapy Visit Type Type Treatment Note Visit Start Time 13:20 Visit Stop Time 14:05 Total Visit Minutes 45 Notes Caregiver present for training . Number of HISTOLOGY SUPERVISOR Visits 1 Physical Therapy Visit Comments Patient Comments Pt found resting in bed, caregiver present, pt agreeable to PT. Therapy Pain Assessment Pain When Pain Assessed At Rest Pain Present Pain Present Pain Reported M4 PT-IP Mobility and Gait Start: 12/03/22 12:15 Freq: NEEDED Status: Active Protocol: Document 12/03/22 14:14 TS (Rec: 12/03/22 14:34 TS [id number]) PT-Bed Mobility Assessment Supine to Sit Supine to Sit Minimal Assistance,1 Person Assistance,Head of Bed Elevated Sit to Supine Sit to Supine Minimal Assistance,1 Person Assistance,Head of Bed Elevated Scooting Scooting to Edge of Bed Contact Guard Assistance Scooting Up and Down in Bed Standby Assistance PT-Transfer Assessment Sit to and From Stand Sit to and from Stand Contact Guard Assistance,1 Person Assistance,Use of Upper Extremities Equipment Transfer Assistive Device Gait Belt,Front Wheeled Walker Orthotic/Prosthetic Devices or Brace: No Comments Mobility Comments Supine to sit Anabel initially for LEs over to EOB, pt uprighted trunk with BUE support. She scooted to EOB CGA with BUE support. Caregiver was instructed in and performed donning of gait belt. She performed sit to stand CGA from caregiver with FWW, required cues for pushing arms up from bed. She ambulated ~100'CGA with FWW and cues for step sequencing, pt demonstrated good awareness of hip precautions. She performed stairs x4 with SPC and handheld assist from caregiver, pt and caregiver were provided cues for step sequencing. Sit to supine into bed Anabel for LEs, pt repositioned self in bed. She was left in bed ready to work with OT, RN was notified of pt 's mobility. Gait Assessment Gait Gait Assistance Required: Contact Guard Assist Distance (Feet) 100 Able to Maintain Weight Bearing Status Yes During Gait Assistive Devices Assistive Device Gait Belt,Front Wheeled Walker Orthotic/Prosthetic Devices or Brace: No Gait Deviations General Gait Pattern Antalgic,Decreased Stride Length,Decreased Feet Clearance Factors Limiting Gait Function Factors Limiting Gait Function Decreased Activity Tolerance, Decreased Sensation,Decreased Strength,Difficulty Following Directions,Limited Range of Motion,Pain,Poor Balance,Poor Safety Awareness Comments Gait Comments See mobility comments. Stair Climbing Assessment Evaluation Level of Assist On Stairs Contact Guard Assistance,1 Person Assistance Devices Stair Climbing Assistive Devices Straight Cane,Right Railing Technique/Endurance Stair Climbing Direction Ascend and Descend Stair Climbing Technique Step to Step Number of Steps Climbed 4 Comments Stair Climbing Comments See mobility comments. PT-Balance Assessment Sitting Balance and Reactions Static Sitting Balance Ability Good Dynamic Sitting Balance Ability Good Standing Balance and Reactions Static Standing Balance Ability Good Dynamic Standing Balance Ability Fair Device Used FWW M5 PT-IP Objective Assessments Start: 12/03/22 12:15 Freq: NEEDED Status: Active Protocol: Document 12/03/22 09:30 AB (Rec: 12/03/22 12:28 AB [id number]) Orientation Orientation/Cognition Level of Alertness Alert Orientation Name,Place Language Function Ability No Deficits Noted Safety Awareness Decreased Safety Awareness Memory Description Short Term Impaired Gross Range of Motion Lower Extremity ROM Assessment Within Functional Limits Strength Lower Extremity Strength Assessment Right Impaired Hip 3-/5 Knee 3+/5 Coordination Assessment Gross Coordination Gross Coordination WNL Sensation Assessment Sensation Sensation Description Numbness Comments Sensation Comments c/o slight lateral R thigh numbness Muscle Tone Muscle Tone WNL Yes M6 PT-IP Treatment Start: 12/03/22 12:15 Freq: NEEDED Status: Active Protocol: Document 12/03/22 14:14 TS (Rec: 12/03/22 14:34 TS [id number]) Physical Therapy Treatment Education Education Provided Precautions,Weight Bearing Status,Post-Op Packet,Safety M7 PT-IP Assessment and Plan Start: 12/03/22 12:15 Freq: NEEDED Status: Active Protocol: Document 12/03/22 14:14 TS (Rec: 12/03/22 14:34 TS [id number]) PT Summary Assessment and Plan Potential Rehabilitation Potential Good Summary Impairments Pain,ROM,Strength,Balance, Coordination,Sensation,Tone, Cognition,Bed Mobility, Transfers,Gait,Activity Tolerance Progress Towards Goals Progressing Toward Goals Assessment Summary Arnoldo is making good progress with her mobility this session . She is Anabel for supine to sit for LEs over to EOB, she uprighted her trunk with BUE support. She performed sit to stand with caregiver and FWW CGA, she had good balance with no retroleaning. She progressed her gait to ~100' CGa with FWW, had no buckling or LOB. She progressed to stairs x4 with use of SPC and handheld assist from caregiver CGA. Caregiver was instructed in and performed donning of gait belt, proper handplacement for sit to stands and gait and step sequencing. PT is recommending pt return home with 24/7 assist at this time and outpatient PT. Goals Bed Mobility Goal Minimal Assistance Transfer Goal Minimal Assistance,Front Wheeled Walker Gait Goal Minimal Assistance,Front Wheel Walker Gait Distance 100 Other Goals improve bed mobiltiy, transfers and ambulation using FWW ~ 200 ft SBA up/down 3 steps using SPC/ACCOUNTING COORDINATOR CGA Days to Meet Goals 10 Frequency of Treatment Frequency Of Treatment Twice a Day Treatment Plan Physical Therapy Treatment Plan Bed Mobility Training,Transfer Training,Gait Training, Therapeutic Exercise,Balance Retraining,Post Op Education, Discharge Planning,Hot or Cold Pack,Neuromuscular Re-ed, Coordination Retraining,Manual Therapy Precautions Anterior Hip Precautions No Hip Extension,No Hip External Rotation Weight Bearing Status Weight Bearing Status Weight Bear as Tolerated Allowed Weight Bearing Amount (enter % RLE WBAT or #) (%) Recommendations To Nursing Amount of Assist Needed 1 Person Assist Discharge Recommendations PT Discharge Recommendations Home with 24/7 Assist Available,Outpatient PT Transportation Needs at Discharge Private Vehicle,Wheelchair/ Cabulance
[2022-12-03 13:33] VITALS: BP 133/49; PULSE 60; RESP 19; TEMP 36; O2SAT 92
--- NOTE | 2022-12-03 14:28 | OT.IP.EVAL ---
Current Diagnoses Unilateral primary osteoarthritis, right hip (12/02/22) Surgery Performed Operation Date: 12/02/22 12:45 Actual Procedures p Total Hip Arthroplasty/Anterior Approach(Right) - Sonny Dallas MD Past Medical History (Last Reviewed 12/03/22 @ 07:33 by Suleman lCemente PA-C) Arthritis Asthma DJD (degenerative joint disease) Fibromyalgia Gout Headache, migraine History of COVID-19 (2019) HLD (hyperlipidemia) HTN (hypertension) IBS (irritable bowel syndrome) Osteoporosis Scoliosis Skin cancer Spinal stenosis Thyroid disease Surgical History (Last Reviewed 12/03/22 @ 07:33 by Suleman Clemente PA-C) History of hysterectomy Hx of appendectomy Hx of section Hx of foot surgery (12/18/21) Occupational Therapy Inpatient Evaluation/Re-Eval M1 PT/OT-IP Prior Functional Status Start: 12/03/22 14:31 Freq: NEEDED Status: Active Protocol: Document 12/03/22 14:31 [facility] (Rec: 12/03/22 14:48 [facility] [id number]) Medical Review Prior Functional Status Medical History Reviewed Yes Communication able to make needs known Mobility and Gait pt stated that she is modified independent with all mobilities and ambulation without AD but occasionally using either a FWW or a SPC in the last month due to hip pain Activities of Daily Living and IADL's Pt needing increased time with ADL and IADL. Social History Household Members significant other Living Arrangements House Number of Floors (Floors) Two Floors Number of Stairs To Enter/Railing? pt will stay on the main level of the house 3 steps without rails to enter Home Environment High Toilet,Walk in Shower Home Equipment Front Wheel Walker,Straight Cane,Shower Seat without Backrest,Hand Held Shower,Grab Bars In Shower Additional Social History Comment pt stated that her seat cover maker Danielle will be assisting her at home M2 OT-IP Current Condition Start: 12/03/22 14:31 Freq: Status: Active Protocol: Document 12/03/22 14:31 [facility] (Rec: 12/03/22 14:48 [facility] [id number]) Occupational Therapy Current Condition Current Condition Evaluation Date 12/03/22 Treatment Diagnosis S/P R SHANNAN Anterior approach Diagnosis Onset Date 12/02/22 Post Operative Precautions Anterior Hip Precautions No Hip Extension,No Hip External Rotation M3 OT- IP Subjective and Pain Start: 12/03/22 14:31 Freq: Status: Active Protocol: Document 12/03/22 14:31 [facility] (Rec: 12/03/22 14:48 [facility] [id number]) OT- Subjective Occupational Therapy Visit Type Type Initial Evaluation Visit Start Time 14:08 Visit Stop Time 14:28 Total Visit Minutes 20 Occupational Therapy Visit Comments Patient Comments Pt and her friend in the room and pt wanting to go home. Patient/Caregiver Goals TO go home. OT Pain Assessment Pain When Pain Assessed During Mobility Pain Present Pain Present Pain Reported M4 OT- IP ADL's Start: 12/03/22 14:31 Freq: Status: Active Protocol: Document 12/03/22 14:31 [facility] (Rec: 12/03/22 14:48 [facility] [id number]) OT BHJ-Futm-Gwqkwas General Evaluation Self-Feeding Ability Independent OT ADL-Grooming General Evaluation Grooming Ability Independent OT ADL-Oral Care General Eval Oral Care Ability Independent OT ADL-Dressing General Eval Upper Body Dressing Ability Minimal Assistance Lower Body Dressing Ability Maximum Assistance Comments OT Dressing Comments Assist to get her tank top over her IV, assist to get underwear/pants over her feet. Able to show pt LB dressing equipment of quality manager and sock aid. Pt's friend states to just assist her. OT ADL-Toileting Comments OT Toileting Comments Able to have pt stand and able to reach herself appropriately to wipe. Suggested use of wet wipes, and use of a pad at night. OT ADL-Bathing Comments OT Bathing Comments Pt states to shower at home. M5 OT- IP IADL's Start: 12/03/22 14:31 Freq: Status: Active Protocol: Document 12/03/22 14:31 [facility] (Rec: 12/03/22 14:48 [facility] [id number]) OT-Instrumental Activities of Daily Living Deficits IADL Deficits Identified Deficits Home Safety Awareness Awareness of Need for Assistance at Home Good Awareness Ability to Problem Solve Emergency Able to Problem Solve Situations Medication Management Medication Management Comments Pt's friend to assist her at this time. Money Management Money Management Comments Pt's friend to assist her at this time. Meal Preparation Meal Preparation Comments Pt's friend to assist her at this time. Mine Expert Mine Expert Comments Pt's friend to assist her at this time. M6 OT- IP Functional Cognition Start: 12/03/22 14:31 Freq: Status: Active Protocol: Document 12/03/22 14:31 [facility] (Rec: 12/03/22 14:48 [facility] [id number]) Cognitive Factors Limiting Selfcare Function Cognitive Ability Level of Alertness Alert Patient Orientation Name,Place,Situation Attention Span Ability Capable of Focused Attention, Capable of Sustained Attention Ability to Follow Commands Able to Follow One Step Commands with Increased Time, Able to Follow One Step Commands with Repetition Safety Awareness Decreased Ability to Apply Precautions,Underestimates Need for Assistance Cognitive Comments Cognitive Assessment Comments Pt needing MAX cues to incorporate her hip precautions especially for mobility needs. Pt's friend has good awareness to be able to assist her safely for all needs. OT- Vision and Hearing OT- Hearing Assessment OT- Hearing Assessment WFL M7 OT- IP Mobility and Balance Start: 12/03/22 14:31 Freq: Status: Active Protocol: Document 12/03/22 14:31 [facility] (Rec: 12/03/22 14:48 [facility] [id number]) OT- Bed Mobility Assessment Supine to Sit Supine to Sit Assist Minimal Assistance OT-Transfer Assessment Sit to and From Stand Sit to and from Stand Contact Guard Assistance Transfers Transfer Ability Standby Assistance Technique Transfer Destination Bed Devices Transfer Assistive Devices Gait Belt,Front Wheeled Walker Comments Mobility Comments DAMARIS to help move her RLE into and out of the bed. SBA with up with the FWW. OT- Balance Assessment Sitting Balance and Reactions Static Sitting Balance Ability Good Dynamic Sitting Balance Ability Good Standing Balance and Reactions Static Standing Balance Ability Good Dynamic Standing Balance Ability Fair M8 OT- IP Objective Assessments Start: 12/03/22 14:31 Freq: Status: Active Protocol: Document 12/03/22 14:31 [facility] (Rec: 12/03/22 14:48 [facility] [id number]) OT Gross Range of Motion Upper Extremity Range of Motion Assessment Within Functional Limits OT Strength Upper Extremity Strength Assessment Within Functional Limits M9 OT- IP Assessment and Plan Start: 12/03/22 14:31 Freq: Status: Active Protocol: Document 12/03/22 14:31 [facility] (Rec: 12/03/22 14:48 [facility] [id number]) OT Summary Assessment and Plan Potential Rehabilitation Potential Good Analytic Complexity at Evaluation Low Summary OT Impairments Pain,Balance,Functional Mobility,Dressing,Toileting, Bathing,Toilet Transfers, Shower Transfers Progress Towards Goals Slow Progress due to Pain Assessment Summary Pt low complexity and main barriers are needing reminders for her hip precautions, easily distracted and needing to slow down. Pt's friend to be able to stay wand assist her safely with all needs. Goals Dressing Goal Independent Toileting Goal Independent Bathing Goal Independent Toilet Transfer Goal Independent Shower Transfer Goal Independent Days to Meet Goals 20 Frequency of Treatment Frequency Of Treatment Once a Day Treatment Plan OT Treatment Plan ADL Training,Functional Mobility,Patient/Family Education,Discharge Planning Discharge Recommendations OT Discharge Recommendations Home with Assistance Transportation Needs at Discharge Private Vehicle
--- NOTE | 2022-12-03 15:46 | PC.NURSE ---
Day shift: Left unit via WC at approx 1540. Paperwork signed and all questions answered. Pain well controlled per APR. Cleared by PT/OT. Pt's friend in room for teachings. Pt has all personal belongings. scripts sent electronic to Pt's pharmacy.
== END 2022-12-03 15:50 | disposition home or self-care (01) ==
LOC: OR 11:21 → AC 14:41
PROVIDERS: PCP Family Medicine; Referring Provider Orthopaedic Surgery Adult Reconstructive Orthopaedic Surgery; Visit Provider Orthopaedic Surgery Adult Reconstructive Orthopaedic Surgery
PROC: (CPT 27130; principal; 2022-12-02 12:45)
DX: M16.11 Unilateral primary osteoarthritis, right hip (principal)
CPT/HCPCS: 27130; 36415; 73502; 76000; 85014; 85018; 97116; 97162; 97165; 97530; C1776; J0131; J0690; J1100; J1170; J2060; J2250; J2405; J2704; J3010; J3410

== ENCOUNTER → 2023-01-01 10:47 | Outpatient (CLI) | payer MEDICARE, SELFPAY ==
[2022-12-02 14:41] VITALS: BMI 25.7
--- NOTE | 2023-01-01 10:48 | DI.MRI.S_ITS ---
PROCEDURE: MR LUMBAR SPINE WO CON INDICATIONS: NEUROPATHY OF RIGHT SCIATIC NERVE TECHNIQUE: Noncontrast sagittal T1 spin echo and T2 fast echo, sagittal STIR, and T2 fast spin echo through the lumbar spine. In cases with scoliosis, additional coronal T2 fast spin echo may be performed. COMPARISON: [facility]ick[facility], CR, XR LUMBAR SPINE 2 OR 3 VIEWS, 11/10/2022, 11:39. FINDINGS: Image quality: Excellent. Alignment and Curvature: There is moderate dextro curvature centered at L2-L3. Bone Marrow: Marrow is of normal overall signal. No acute vertebral body compression fractures. Spinal Cord: Conus medullaris terminates at the L1-L2 level. Visualized cord demonstrates normal signal and size. Paraspinous Soft Tissues: No paravertebral masses. T12-L1: Chronic disc height loss. Mild left paracentral disc protrusion. Facet hypertrophy. Mild canal stenosis. No significant foraminal stenosis. L1-L2: Chronic disc height loss. Disc bulge. Bilateral facet hypertrophy. No central canal stenosis. Left lateral recess stenosis secondary to left facet hypertrophy directed anteriorly. There is moderate left foraminal narrowing. L2-L3: Chronic disc height loss. Disc bulge. Bilateral facet hypertrophy. No central canal stenosis. There is a degree of left lateral recess stenosis secondary to left facet hypertrophy. The no foraminal nerve root impingement. L3-L4: Chronic disc height loss. Diffuse posterior disc bulge. Facet hypertrophy. No central canal stenosis. There is [id number] bilateral foraminal narrowing. L4-L5: Chronic disc height loss. Disc bulge. Facet and ligament hypertrophy. There is severe right foraminal narrowing with right foraminal L4 nerve root impingement. There is mild left foraminal narrowing. L5-S1: There is disc bulge. There is prominent facet hypertrophy bilaterally. There is no central canal stenosis. On axial image 24 of series 8, which angles at the level of the L5-S1 disc, and is not a extend more inferiorly, there is a small associated facet joint cyst off the right facet which impinges somewhat on the right S1 nerve root in the right lateral recess. On the stacked axial images in series 7, on image 31 and 32, there is a cystic structure inside the canal which anteriorly deviates the right S1 nerve root, slightly inferior to the small facet joint cyst. This may potentially be a Tarlov nerve root sleeve cyst. It may contribute tip potential impingement on the right S1 nerve root. Also, or reference sagittal T2 image 10 of series 4. IMPRESSION: 1. There is moderate dextro curvature centered at L2-L3. 2. There is associated multilevel facet arthropathy. 3. There is left lateral recess stenosis at L1-L2 and L2-L3. 4. There is severe right foraminal narrowing with right foraminal L4 nerve root impingement at L4-L5. 5. At L5-S1, at the level of the disc, there is a small facet joint cyst off the right facet which impinges on the right S1 nerve root in the right lateral recess. Additionally, there is a large cystic structure in the canal in the right lateral recess just below the disc space which deviates the right S1 nerve root anteriorly. This may potentially represent a nerve root sleeve cyst. Comment: Consider a lumbosacral MR with and without targeting the L5 through S2 region, to identify the etiology of the cystic structure anteriorly deviating the right S1 nerve root just below the disc space, if surgery is considered in this patient for potential right S1 radicular symptoms. Dictated by: Radames Mendoza M.D. on 01/03/2023 at 9:50 Approved by: Radames Mendoza M.D. on 01/03/2023 at 10:12
== END ==
PROVIDERS: PCP Family Medicine; Referring Provider Orthopaedic Surgery Adult Reconstructive Orthopaedic Surgery; Visit Provider Orthopaedic Surgery Adult Reconstructive Orthopaedic Surgery
DX: G57.01 Lesion of sciatic nerve, right lower limb (principal); M47.816 Spondylosis without myelopathy or radiculopathy, lumbar region; M47.817 Spondylosis without myelopathy or radiculopathy, lumbosacral region; M48.061 Spinal stenosis, lumbar region without neurogenic claudication; M48.07 Spinal stenosis, lumbosacral region; M53.87 Other specified dorsopathies, lumbosacral region
CPT/HCPCS: 72148

== ENCOUNTER → 2023-05-04 14:02 | Outpatient (CLI) | payer MEDICARE, SELFPAY ==
[2022-12-02 14:41] VITALS: BMI 25.7
--- NOTE | 2023-05-04 | DI.CT.S_ITS ---
PROCEDURE: CT LUMBAR SPINE WO CON INDICATIONS: Spinal stenosis, lumbar region TECHNIQUE: Noncontrast 3 mm thick sections acquired from the T12 level to the sacrum. Sagittal and coronal reformats were constructed. For radiation dose reduction, the following was used: automated exposure control. COMPARISON: [facility], MR, MR LUMBAR SPINE WO CON, 01/01/2023, 10:56. FINDINGS: Image quality: Portions of the lower pelvis are suboptimally evaluated secondary to metallic streak artifact from hip arthroplasty. Bones: There is prominent rightward scoliotic curvature with apex at L3. No visualized fracture or dislocation. No suspicious osseous lesions. Multilevel moderate to severe disc space narrowing most prominent at L2-3 through L4-5 with the latter demonstrating vacuum disc. Prominent anterior osteophytes are present most severe from L2 through L4. Multilevel disc bulges are present throughout the lumbar spine. Mild canal narrowing at L3-4. Multilevel foraminal narrowing most severe on the right at L4-5. [id number] bilateral foraminal narrowing is present at L3-4. There is an ill-defined mass adjacent to the right lateral spinal canal at the level of S1. This corresponds to cystic structure better visualized on prior MRI. Soft tissues: No retroperitoneal masses or hematomas. Diverticulosis. Visualized aorta is normal in caliber. IMPRESSION: Poorly defined mass at the level of the spinal canal at S1. This was previously identified in characterized on MRI of 01/01/2023. As previously noted, this could represent a nerve root sleeve versus Tarlov cyst. Multilevel degenerative changes are otherwise stable compared to prior exam. Scoliotic curvature is present. Dictated by: Jackie Gann M.D. on 05/04/2023 at 16:56 Approved by: Jackie Gann M.D. on 05/04/2023 at 17:13
== END ==
PROVIDERS: PCP Family Medicine; Referring Provider Orthopaedic Surgery Orthopaedic Surgery of the Spine; Visit Provider Orthopaedic Surgery Orthopaedic Surgery of the Spine
DX: M48.062 Spinal stenosis, lumbar region with neurogenic claudication (principal); M47.816 Spondylosis without myelopathy or radiculopathy, lumbar region; M89.9 Disorder of bone, unspecified; M41.9 Scoliosis, unspecified
CPT/HCPCS: 72131

== ENCOUNTER 2023-05-24 14:59 | Emergency (ER) | payer MEDICARE, SELFPAY ==
[2022-12-02 14:41] VITALS: BMI 25.7
[2023-05-24 15:04] VITALS: BP 124/82; PULSE 86; RESP 20; TEMP 36.4; O2SAT 97; BMI 24.5
--- NOTE | 2023-05-24 16:12 | ED.BACK ---
HPI - Back Pain/Injury <Kanika Maria PA-C - Last Filed: 05/24/23 21:50> General Chief Complaint: Back Pain/Injury Stated Complaint: Severe back/hip pain Time Seen by Provider: 05/24/23 15:16 Source: patient History of Present Illness HPI Narrative: 77-year-old female with a history of hip osteoarthritis, degenerative joint disease, scoliosis, chronic low back pain, sciatica and spinal lumbar cysts with radiculopathy seen by Orthopedics with surgery scheduled for next week presents with concern for acute on chronic back pain. Patient states for the last 2 days her regular pain meds have not been controlling her pain well. She was actually seen by Orthopedics today in clinic in preparation for cyst /spine surgery next week; she states she did not talk to them about the degree of her pain or ask them for any medications to treat it, she states she is mostly hoping for a muscle relaxer as she feels that tight muscles are spasming and causing her pain to be worse she is out of her muscle relaxer currently. She states her pain is okay if she has not moving but sometimes changes in body position exacerbate it and cause spasming. She denies any other new symptoms or concerns but does state that she feels it will be difficult to tolerate her current pain and discomfort until her orthopedic procedure next week. Denies loss of bowel or bladder function. Denies saddle paresthesia or fevers, denies new LE weakness. Related Data Home Medications Medication Instructions Recorded Confirmed ezetimibe 10 mg tablet (Zetia) 10 mg PO DAILY 12/17/21 12/02/22 hydrocodone 10 mg-acetaminophen 1 tab PO Q4-6H PRN Pain 12/17/21 11/24/22 325 mg tablet levothyroxine 50 mcg tablet 50 mcg PO DAILY ##0 12/17/21 12/02/22 losartan 100 mg tablet 100 mg PO DAILY ##0 12/17/21 12/02/22 pregabalin 100 mg capsule 100 mg PO BID 12/17/21 12/02/22 methocarbamol 750 mg tablet 750 mg PO BID 11/24/22 12/02/22 Previous Rx's Medication Instructions Recorded lidocaine 5 % topical patch 1 patch topical DAILY pain 15 days 05/24/23 #15 ea methocarbamol 750 mg tablet 750 mg PO Q8H spasms 7 days #21 05/24/23 tabs Allergies Allergy/AdvReac Type Severity Reaction Status Date / Time ibuprofen Allergy Mild Rash Verified 05/24/23 15:10 NSAIDS (Non-Steroidal Allergy Mild Rash Verified 05/24/23 15:10 Anti-Inflamma Review of Systems <Kanika Maria PA-C - Last Filed: 05/24/23 21:50> Review of Systems Narrative: See HPI Patient History <Kanika Maria PA-C - Last Filed: 05/24/23 21:50> Medical History History of COVID-19 (2019) Thyroid disease Spinal stenosis Osteoporosis Scoliosis IBS (irritable bowel syndrome) Headache, migraine Fibromyalgia Gout DJD (degenerative joint disease) HTN (hypertension) HLD (hyperlipidemia) Skin cancer Asthma Arthritis Surgical History Hx of foot surgery (12/18/21) Hx of section History of hysterectomy Hx of appendectomy Social History household members: significant other Smoking Status: Former smoker alcohol intake: never Smoking Status: Former smoker alcohol intake frequency: 0-2 drinks per day Substance Use Type: marijuana Exam <Kanika Maria PA-C - Last Filed: 05/24/23 21:50> Narrative Exam Narrative: GENERAL: [77] year old patient appears stated age. Well-developed patient, in mild to moderate distress; sitting in a wheelchair, long periods where she appears in no distress relaxed and looking at her phone other periods where she seems to be in acute distress and is yelping or moaning stating pain/spasms are bad--these episodes seem coincident with when a nurse or provider is in the room or walking by. HEAD: Atraumatic. Normocephalic. EYES: Pupils equal round and reactive. Extraocular motions intact. No scleral icterus. No injection or drainage. ENT: Nose without bleeding, purulent drainage. Airway patent. NECK: Trachea midline. Non tender CARDIOVASCULAR: Regular rate and rhythm without murmurs, gallops, or rubs. RESPIRATORY: Clear to auscultation. Breath sounds equal bilaterally. No wheezes, rales, or rhonchi. GASTROINTESTINAL: Abdomen soft, non-tender, nondistended. EXTREMITIES: No edema or joint tenderness. BACK: There is midline spinous tenderness in the low lumbar/sacral spine, there is significant tenderness of the paraspinal muscles in the same region and of the right buttock, patient yells or yelps in pain with even very light touch to the paraspinal region on the right lumbosacral area or the gluteus. Muscles of this region are very tight. Upper spine/back is Nontender without deformity or crepitance. No CVA tenderness. NEURO: AOx3. SKIN: No rash or erythema of visible areas Initial Vital Signs Initial Vital Signs: Vital Signs Temperature 97.5 F L 05/24/23 15:04 Pulse Rate 86 05/24/23 15:04 Respiratory Rate 20 05/24/23 15:04 Blood Pressure 124/82 05/24/23 15:04 Pulse Oximetry 97 05/24/23 15:04 Oxygen Delivery Method Room Air 05/24/23 15:04 <Barbara Das DO - Last Filed: 05/26/23 07:46> Initial Vital Signs Initial Vital Signs: Vital Signs Temperature 97.5 F L 05/24/23 15:04 Pulse Rate 86 05/24/23 15:04 Respiratory Rate 20 05/24/23 15:04 Blood Pressure 124/82 05/24/23 15:04 Pulse Oximetry 97 05/24/23 15:04 Oxygen Delivery Method Room Air 05/24/23 15:04 Course <Kanika Maria PA-C - Last Filed: 05/24/23 21:50> Course Course Narrative: Did attempt to contact Dr. Hickey at [facility] regarding this patient, the nurse that I did speak with who is not his nurse stated that patient has a pain contract, they are unsure who the contract is with, did get transferred to his nurses line unfortunately was not able to get through. Based on the fact that this patient has a pain contract do not anticipate prescribing any additional opioids for her, will help her with some muscle relaxer as she says she is out of her methocarbamol and we will treat her pain here in the emergency department. [address] Hickey, patient's orthopedist who called back after I had discharged the patient. States he advise the patient to go to the ER she felt her pain was intolerable. 1756 Orders Ordered: Discontinued Medications Hydromorphone HCl (Hydromorphone 1 Mg Inj) 1 mg IM NOW ONE Stop: 05/24/23 16:30 Last Admin: 05/24/23 16:41 Dose: 1 mg Documented By: EMILY Lidocaine (Lidocaine 5% Patch) 1 each TOP NOW ONE Stop: 05/24/23 16:30 Last Admin: 05/24/23 16:41 Dose: 1 each Documented By: EMILY Ondansetron HCl (Ondansetron 4 Mg Odt) 4 mg SL NOW ONE Stop: 05/24/23 16:52 Last Admin: 05/24/23 16:53 Dose: 4 mg Documented By: EMILY Vital Signs Vital signs: Vital Signs - 8 hr 05/24/23 15:04 05/24/23 17:40 Temperature 97.5 F L Pulse Rate 86 62 Respiratory Rate 20 Blood Pressure 124/82 180/78 H Pulse Oximetry 97 97 Oxygen Delivery Method Room Air Room Air <Barbara Das DO - Last Filed: 05/26/23 07:46> Orders Ordered: Discontinued Medications Hydromorphone HCl (Hydromorphone 1 Mg Inj) 1 mg IM NOW ONE Stop: 05/24/23 16:30 Last Admin: 05/24/23 16:41 Dose: 1 mg Documented By: EMILY Lidocaine (Lidocaine 5% Patch) 1 each TOP NOW ONE Stop: 05/24/23 16:30 Last Admin: 05/24/23 16:41 Dose: 1 each Documented By: EMILY Ondansetron HCl (Ondansetron 4 Mg Odt) 4 mg SL NOW ONE Stop: 05/24/23 16:52 Last Admin: 05/24/23 16:53 Dose: 4 mg Documented By: EMILY Vital Signs Vital signs: Vital Signs - 8 hr 05/24/23 15:04 05/24/23 17:40 Temperature 97.5 F L Pulse Rate 86 62 Respiratory Rate 20 Blood Pressure 124/82 180/78 H Pulse Oximetry 97 97 Oxygen Delivery Method Room Air Room Air MDM - Back Pain/Injury <Kanika Maria PA-C - Last Filed: 05/24/23 21:50> Differential Diagnosis Differential diagnosis: Likely lumbar radiculopathy, sciatica, strain of lumbar region, discitis and other (Acute on chronic back pain) Medical Records Attestation: I reviewed the patient's medical records. Medical records narrative: Reviewed patient's medical records including her recent back MR which does show 2 cysts and significant degenerative disease of the spine. ECG Data Attestation: I personally reviewed and interpreted this ECG as follows: Interpretation: Preop EKG obtained for the patient during her ER stay today which shows heart rate of 65, normal sinus rhythm, QTC [address] changes noted MDM Narrative Medical decision making narrative: This is a intermittently very uncomfortable appearing 77-year-old woman with history notable for spinal stenosis, lumbar sacral spinal cysts, chronic back pain and right hip/buttock pain, hypothyroid who presents to the ER today stating she originally came in for her outpatient EKG for her preop as she is having surgery next week, but decided to check into the ER as she wants help with her muscle relaxers which she is out of and is having worse back pain compared to her baseline. Patient was seen by her orthopedic provider in clinic today just prior to coming to the ER. Did attempt to contact the provider to discuss her situation with him, however was unable to reach him prior to discharge. Did speak with him after discharge and per his account he recommended she go to the emergency department if she was having severe pain as he said she was helping and seeming to be in pain when he saw her in clinic today. Patient endorsed only desiring help with a muscle relaxer and that her pain has been more bothersome in the last few days but consistent with her previous pain, feeling like it will be difficult to make it to her surgery next week if her pain persists as it has, did review the patient's recent imaging. Provided the patient with IM Dilaudid 1 mg as well as a lidocaine patch today. She notably has a prescription for hydrocodone already with her last dose today at noon. She is on a pain contract and outpatient/additional opioids are not prescribed for her today, do prescribe additional muscle relaxer and lidocaine patches. Labs and imaging are not obtained today as her pain is consistent with an acute exacerbation of her chronic pain. Return precautions provided, follow-up plan discussed, all questions answered. Discharge Plan Departure Patient Disposition: Home Clinical Impression: Acute exacerbation of chronic low back pain Activity Restrictions/Additional Instructions: *You have been diagnosed with [acute exacerbation of chronic back pain] *What to do: *Please continue to take your regular medications as directed. [1] New medication prescriptions sent to your pharmacy: [Methocarbamol] [ ] New medication written as a paper prescription [ ] No new medications given *Please follow up with your primary care provider in 2-3 days, call for an appointment. Let them know you were seen in the Emergency Department and that we ask that you be seen in follow up. We will electronically transmit a record of today's note if your PCP is in our system. You came into the ER today with concern for heating an EKG preop as you are having surgery next week with Orthopedics, and also because you felt that your pain in your back for which he is having surgery next week is not well controlled and wanting some muscle relaxers as you were out of these. UR on a pain contract and unfortunately I can not prescribe additional opioid medications for you, we did give you a shot of opioid medicine here in the emergency department as well as some antinausea medicine, we also gave you a lidocaine patch. I am prescribing lidocaine patches for you as well as some additional methocarbamol as you state you are out of her muscle relaxer. Please do not take more of this than is prescribed, I do recommend reaching out to your orthopedic provider and your pain provider if you feel your pain is not well enough controlled. I know you saw orthopedic doctor earlier this afternoon, however it sounds like you are having a lot of difficulty with this pain and it may be worth reaching out to them again at least by phone. I hope that you feel better soon. *If you do not have a primary care provider please contact the [facility] Resource line at [phone]. They will ask some questions about your medical history and help get you set up with a doctor in the community. *Return to Emergency Department if you should have any new, worsening or concerning symptoms, such as [fever greater than 101 F, shaking chills, worsening pain, persistent vomiting or other bothersome symptoms] Prescriptions: New methocarbamol 750 mg tablet 750 mg PO Q8H 7 Days Qty: 21 0RF lidocaine 5 % adhesive patch,medicated 1 patch topical DAILY 15 Days Qty: 15 0RF Rx Instructions: leave on most painful area for up to 12 hrs No Action hydrocodone-acetaminophen 10-325 mg Tablet 1 tab PO Q4-6H PRN (Reason: Pain) levothyroxine 50 mcg Tablet 50 mcg PO DAILY Qty: 0 losartan 100 mg Tablet 100 mg PO DAILY Qty: 0 ezetimibe [Zetia] 10 mg Tablet 10 mg PO DAILY pregabalin 100 mg Capsule 100 mg PO BID methocarbamol 750 mg Tablet 750 mg PO BID Referrals: Angie Cloud MD [Primary Care Provider] - Stand Alone Forms: Patient Portal/API ED Sign-out <Barbara Das DO - Last Filed: 05/26/23 07:46> Cosign ED Attending Coskeishaature Attestation: I was available for consultation.
[2023-05-24] MEDS: HYDROMORPHONE 1 MG INJ IM (16:41)
[2023-05-24] MEDS: LIDOCAINE 5% PATCH 1 EACH TOP (16:41)
[2023-05-24] MEDS: ONDANSETRON 4 MG ODT SL (16:53)
[2023-05-24 17:40] VITALS: BP 180/78; PULSE 62; O2SAT 97
== END 2023-05-24 17:40 | disposition home or self-care (01) ==
PROVIDERS: Emergency Provider Student in an Organized Health Care Education/Training Program; PCP Family Medicine
DX: M54.50 Low back pain, unspecified (principal)
CPT/HCPCS: 93005; 96372; 99283; J1170